=== PATIENT | female | born 1955 | race Two or more races ===

== ENCOUNTER 2017-09-16 18:24 | Emergency (ER) | payer OTHER, MEDICAID ==
[~2017-09-16] VITALS: Ht 152.4 cm; Wt 62.6 kg
[~2017-09-16 18:24] MED LIST: BACL20TA PO; GABA100C9 PO; IBUP800T24 PO; LEVE100020 PO; LISI2.5T47 PO; MECL1TAB42 PO; MEM5T PO; MEMA10TA PO; NITR-48 PO; OLAN20TA13 PO; TRAZ100T2 PO
[2017-09-16 19:13] LABS: Basophils # (auto) 0 uL; Eosinophils # (auto) 0 uL; Eosinophils % (auto) 0.7 % (0.0-7.0); Hemoglobin 11.7 g/dL (12.2-16.2); Monocytes # (auto) 0.4 uL; Nucleated Red Blood Cells % 0.2 %
[2017-09-16 19:15] LABS: Basophils % (auto) 0.7 % (0.0-2.0); Hematocrit 35.1 % (36.0-46.0); Lymphocytes % (auto) 39.7 % (10.0-50.0); Mean Corpuscular Hemoglobin 36.6 pg (28.0-32.0); Mean Corpuscular Hgb Conc. 33.4 g/dL (32.0-36.0); Mean Corpuscular Volume 109.5 fL (80.0-100.0); Monocytes % (auto) 8.4 % (0.0-12.0); Neutrophils # (auto) 2.5 uL; Neutrophils % (auto) 50.5 % (37.0-80.0); Platelet Count (auto) 199 10^3/uL (140-450); Red Blood Cells 3.21 10^6/uL (4.0-5.20); Red Cell Distribution Width 15.1 % (11.8-14.3)
[2017-09-16 19:31] LABS: Potassium 3.6 mmol/L (3.5-5.1)
[2017-09-16 19:36] LABS: Albumin 4.4 g/dL (3.4-5.0); BUN/Creatinine Ratio 13.3; Bilirubin, Total 0.3 mg/dL (0.2-1.0); Calcium 8.7 mg/dL (8.5-10.1)
[2017-09-16 19:39] LABS: Urine Bacteria NONE SEEN /hpf (None Seen); Urine Blood Negative /uL (Negative); Urine Mucus FEW (None Seen); Urine Specific Gravity 1.027 (1.001-1.035); Urine WBC 200 /hpf (0 - 5)
[2017-09-17] MEDS ORDERED: SODIUM CHLORIDE 0.9% 1,000 ML IV ONE (08:34)
[2017-09-17] MEDS ORDERED: cefTRIAXone 1GM/10ml IVPUSH 10 ML IV ONE (08:45)
[2017-09-17 09:56] LABS: Alcohol, Urine < 3.0 mg/dL (0-5); Amphetamine Screen, Urine NEGATIVE (NEGATIVE); Barbiturate Scree,Urine NEGATIVE (NEGATIVE); Benzodiazephine Screen, Urine NEGATIVE (NEGATIVE); Cannabinoid Screen, Urine NEGATIVE (NEGATIVE); Cocaine Screen, Urine NEGATIVE (NEGATIVE); Opiate Scree,Urine NEGATIVE (NEGATIVE); Phencyclidine Screen, Urine NEGATIVE (NEGATIVE)
[2017-09-17 11:37] VITALS: BP 166/75
== END 2017-09-17 12:18 | disposition home or self-care (01) ==
LOC: ER 18:24
DX: R41.82 Altered mental status, unspecified (principal); N39.0 Urinary tract infection, site not specified; F02.80 Dementia in other diseases classified elsewhere, unspecified severity, without behavioral disturbance, psychotic disturbance, mood disturbance, and anxiety; G30.9 Alzheimer's disease, unspecified; N18.3 Chronic kidney disease, stage 3 (moderate); G35 Multiple sclerosis; E03.9 Hypothyroidism, unspecified; D64.9 Anemia, unspecified; R56.9 Unspecified convulsions; I12.9 Hypertensive chronic kidney disease with stage 1 through stage 4 chronic kidney disease, or unspecified chronic kidney disease; M19.90 Unspecified osteoarthritis, unspecified site; K21.9 Gastro-esophageal reflux disease without esophagitis; J44.9 Chronic obstructive pulmonary disease, unspecified; I25.10 Atherosclerotic heart disease of native coronary artery without angina pectoris; F32.9 Major depressive disorder, single episode, unspecified; F17.210 Nicotine dependence, cigarettes, uncomplicated
CPT/HCPCS: 36415; 70450; 71046; 80053; 80307; 81001; 83735; 84443; 85025; 93005; 94761; 96361; 96374; 99285; J7030

== ENCOUNTER 2017-09-30 08:35 | Emergency (ER) | payer OTHER, MEDICAID ==
[~2017-09-30] VITALS: Ht 152.4 cm; Wt 65.8 kg
[2017-09-30] MEDS ORDERED: ALBUTEROL SULF 2.5 MG/0.5ML(0.5%) NEB SOLN NEB ONE (09:30)
[2017-09-30] MEDS ORDERED: methylPREDNISolone SOD SUCC 125 MG/2 ML VL IV ONE (09:30)
[2017-09-30] MEDS ORDERED: IPRATROPIUM BROM 0.5 MG/2.5ML INH SOL NEB ONE (09:30)
[2017-09-30 09:36] LABS: Basophils # (auto) 0 uL; Eosinophils # (auto) 0 uL; Hematocrit 31.2 % (36.0-46.0); Hemoglobin 10.6 g/dL (12.2-16.2); Lymphocytes # (auto) 1.4 uL; Mean Corpuscular Hgb Conc. 34.1 g/dL (32.0-36.0); Monocytes # (auto) 0.3 uL; Neutrophils # (auto) 1.4 uL; Red Blood Cells 2.92 10^6/uL (4.0-5.20)
[2017-09-30 09:39] LABS: Basophils % (auto) 0.5 % (0.0-2.0); Eosinophils % (auto) 0.7 % (0.0-7.0); Lymphocytes % (auto) 45.1 % (10.0-50.0); Mean Corpuscular Hemoglobin 36.3 pg (28.0-32.0); Mean Corpuscular Volume 106.7 fL (80.0-100.0); Neutrophils % (auto) 44.7 % (37.0-80.0); Platelet Count (auto) 145 10^3/uL (140-450); Red Cell Distribution Width 14.1 % (11.8-14.3); White Blood Cell 3.1 10^3/uL (4.4-10.8)
[2017-09-30 09:52] LABS: Alanine Aminotransferase 32 U/L (13-56); Albumin 4.1 g/dL (3.4-5.0); Alkaline Phosphatase 106 U/L (45-117); Anion Gap 6 (5-15); Aspartate Aminotransferase 33 U/L (15-37); BUN/Creatinine Ratio 10.8; Bilirubin, Total 0.3 mg/dL (0.2-1.0); Blood Urea Nitrogen 12 mg/dL (7-18); Calcium 8.4 mg/dL (8.5-10.1); Carbon Dioxide 27 mmol/L (21-32); Chloride 105 mmol/L (98-107); GFR African American 64 mL/min; GFR Non-African American 53 mL/min; Glucose 118 mg/dL (74-106); Potassium 4.2 mmol/L (3.5-5.1); Sodium 138 mmol/L (136-145); Total Protein 7.3 g/dL (6.4-8.2)
[2017-09-30 10:32] LABS: Urine Bacteria NONE SEEN /hpf (None Seen); Urine Blood Negative /uL (Negative); Urine Specific Gravity 1.009 (1.001-1.035); Urine WBC <1 /hpf (0 - 5)
[2017-09-30 11:05] VITALS: BP 134/71
== END 2017-09-30 11:28 | disposition home or self-care (01) ==
LOC: ER 08:35
DX: J40 Bronchitis, not specified as acute or chronic (principal); I25.10 Atherosclerotic heart disease of native coronary artery without angina pectoris; J44.9 Chronic obstructive pulmonary disease, unspecified; K21.9 Gastro-esophageal reflux disease without esophagitis; I12.9 Hypertensive chronic kidney disease with stage 1 through stage 4 chronic kidney disease, or unspecified chronic kidney disease; N18.9 Chronic kidney disease, unspecified; F17.210 Nicotine dependence, cigarettes, uncomplicated; Z90.49 Acquired absence of other specified parts of digestive tract
CPT/HCPCS: 36415; 71045; 80053; 81001; 83880; 84484; 85025; 93005; 94640; 96374; 99285; J2930

== ENCOUNTER 2019-07-27 08:14 | Inpatient (IN) | payer OTHER, MEDICAID ==
[~2019-07-27] VITALS: Ht 152.4 cm; Wt 70.5 kg
[2019-07-27] VITALS (26 sets, daily range): BP systolic 93–143; BP diastolic 33–104
[~2019-07-27 08:14] MED LIST changes: -NITR-48 PO; +NITR100C44 PO
[2019-07-27 09:04] LABS: Basophils # (auto) 0 uL; Eosinophils # (auto) 0 uL; Eosinophils % (auto) 0.5 % (0.0-7.0); Monocytes # (auto) 0.3 uL; Neutrophils # (auto) 2.9 uL
[2019-07-27] MEDS ORDERED: LORazepam 2MG/ML-1ML VIAL ONE (09:04)
[2019-07-27 09:08] LABS: Hemoglobin 12.6 g/dL (12.2-16.2); Lymphocytes % (auto) 22.8 % (10.0-50.0); Mean Corpuscular Hemoglobin 33.2 pg (28.0-32.0); Mean Corpuscular Hgb Conc. 33.2 g/dL (32.0-36.0); Monocytes % (auto) 7.3 % (0.0-12.0); Neutrophils % (auto) 68.4 % (37.0-80.0); Platelet Count (auto) 182 10^3/uL (140-450); Red Cell Distribution Width 14.1 % (11.8-14.3); White Blood Cell 4.2 10^3/uL (4.4-10.8)
[2019-07-27] MEDS ORDERED: CALCIUM GLUC 4.65meq/50ml D5AE 50 ML IV ONE (09:15)
[2019-07-27] MEDS ORDERED: LORazepam 2MG/ML-1ML VIAL IV ONE (09:15)
[2019-07-27 09:19] LABS: Anion Gap 5 (5-15); Blood Urea Nitrogen 35 mg/dL (7-18); Calcium 8.1 mg/dL (8.5-10.1); Carbon Dioxide 23 mmol/L (21-32); Chloride 111 mmol/L (98-107); Glucose 120 mg/dL (74-106); Magnesium 2.1 mg/dL (1.6-2.6); Sodium 139 mmol/L (136-145)
[2019-07-27 09:25] LABS: Alanine Aminotransferase 9 U/L (13-56); Alkaline Phosphatase 90 U/L (45-117); Aspartate Aminotransferase 16 U/L (15-37); BUN/Creatinine Ratio 29.2; Bilirubin, Total 0.6 mg/dL (0.2-1.0); GFR African American 58 mL/min; GFR Non-African American 48 mL/min; Total Protein 5.7 g/dL (6.4-8.2)
[2019-07-27] MEDS ORDERED: GLUCAGON HYDROCHLORIDE (RDNA) 1 MG VIAL ONE (09:35)
[2019-07-27] MEDS ORDERED: ATROPINE SULFATE 1 MG/1 ML VIAL ONE (09:41)
[2019-07-27] MEDS ORDERED: GLUCAGON HYDROCHLORIDE (RDNA) 1 MG VIAL IV ONE (09:45)
[2019-07-27] MEDS ORDERED: ATROPINE SULF 1 MG/10ml SYR IV ONE ×2 (09:45→17:52)
[2019-07-27] MEDS ORDERED: DOPamine 1600MCG/ML D5W 250 ML IV ONE (10:00)
[2019-07-27] MEDS ORDERED: TEMAZEPAM 15 MG CAP PO PRN (10:15)
[2019-07-27] MEDS ORDERED: MORPHINE SULF INJ 2 MG/ML SYRINGE 1ML IV PRN (10:15)
[2019-07-27] MEDS ORDERED: PROMETHAZINE HCL 25 MG/ML 1ML IV PRN (10:15)
[2019-07-27] MEDS ORDERED: NITROGLYCERIN 0.4 MG SL TAB SL PRN (10:15)
[2019-07-27] MEDS ORDERED: ACETAMINOPHEN 500 MG TAB PO PRN (10:15)
[2019-07-27] MEDS ORDERED: traMADol HCL 50 MG TAB PO PRN (10:15)
[2019-07-27] MEDS ORDERED: DEXTROSE (50%) 50ML SYRG IV PRN (10:15)
[2019-07-27] MEDS ORDERED: ENOXAPARIN SOD 40 MG/0.4 ML SYRINGE SC ONE (10:30)
[2019-07-27] MEDS ORDERED: PANTOPRAZOLE 40 MG TAB PO ONE (10:30)
[2019-07-27] MEDS: SODIUM CHLORIDE 0.9% 1,000 ML IV SCH ×2 (10:44→18:33)
--- NOTE | 2019-07-27 10:50 | NUR ---
REPORT RECEIVED Report received from Robin RAMOS.
--- NOTE | 2019-07-27 11:00 | NUR ---
PATIENT RECEIVED Patient received from ER from RACHEL Kelly. Patient in bed awake and alert. Patient A&Ox4, afebrile, sinus rhythm on Dopamine, patient able to assist in transfer and follow commands.
[2019-07-27] MEDS: ACCU-CHEK COMFORT CURVE STRIP VI SCH ×3 (11:30→22:00)
--- NOTE | 2019-07-27 12:00 | NUR ---
FAMILY CALLED Patients son, Carlin, called to get update on patients status. Son can be reached at [phone].
--- NOTE | 2019-07-27 14:32 | NUR ---
FAMILY CALLED Son, Carlin, called to check on patients status. Updated.
--- NOTE | 2019-07-27 15:55 | NUR ---
VIVIAN AVILA Paged Dr. Gibbs to update on patients heart rate.
--- NOTE | 2019-07-27 16:00 | NUR ---
SPOKE TO MD Dr. Gibbs returned call, updated him on patients status. MD stated to update him if patient develops a second or third degree block.
[2019-07-27] MEDS ORDERED: ALBU1SYP PO (16:48)
[2019-07-27] MEDS ORDERED: LEVO100T8 PO (16:48)
[2019-07-27] MEDS ORDERED: GLAT1INJ SC (16:48)
[2019-07-27] MEDS ORDERED: PARO25TA21 PO (16:48)
[2019-07-27] MEDS ORDERED: KETO2CRE4 EX (16:48)
[2019-07-27] MEDS ORDERED: FLUT250M2 IN (16:48)
[2019-07-27] MEDS ORDERED: DONE10TA40 PO (16:48)
[2019-07-27] MEDS ORDERED: SUMA25TA2 PO (16:48)
[2019-07-27] MEDS ORDERED: DOPamine 1600mCg/ml 400MG/250ml NSorD5 KIT/BAG IV ONE (17:52)
--- NOTE | 2019-07-27 18:55 | NUR ---
FAMILY BEDSIDE Son, Carlin, bedside.
[2019-07-27] MEDS ORDERED: ATORVASTATIN 20 MG TAB PO SCH (22:00)
[2019-07-28] VITALS (61 sets, daily range): BP systolic 94–152; BP diastolic 39–70
[2019-07-28] MEDS: SODIUM CHLORIDE 0.9% 1,000 ML IV SCH ×4 (02:05→23:10)
--- NOTE | 2019-07-28 06:25 | NUR ---
IV L HAND INFILTRATED WITH N/S . IV D/CD AND HAND ELEVATED
[2019-07-28] MEDS: ACCU-CHEK COMFORT CURVE STRIP VI SCH ×4 (06:32→22:00)
[2019-07-28 06:57] LABS: Cholesterol 64 mg/dL (< 200); HDL Cholesterol 46 mg/dL (40-59); LDL Cholesterol 30 mg/dL (< 100); Triglycerides 3 mg/dL (< 150)
--- NOTE | 2019-07-28 07:20 | NUR ---
OPENING Received report from Liban RAMOS. Care initiated and initial assessment complete.
[2019-07-28] MEDS ORDERED: DOPamine 1600MCG/ML D5W 250 ML IV ONE (07:48)
--- NOTE | 2019-07-28 09:20 | NUR ---
BEDSIDE Dr. Gibbs bedside. New orders received. spoke to patient about Leaky Valve dx.
[2019-07-28] MEDS ORDERED: MECLIZINE HCL 25 MG TAB PO PRN (09:30)
[2019-07-28] MEDS: amLODIPine BESYLATE 5 MG TAB PO SCH (10:00)
[2019-07-28] MEDS: PANTOPRAZOLE 40 MG TAB PO SCH (10:05)
[2019-07-28] MEDS: ENOXAPARIN SOD 40 MG/0.4 ML SYRINGE SC SCH (10:06)
[2019-07-28] MEDS ORDERED: LEVOTHYROXINE SODIUM 100 MCG/5 ML INJ IV ONE (10:30)
--- NOTE | 2019-07-28 11:30 | NUR ---
DOPAMINE OFF MDs ordered Dopamine be titrated off and DC'd. Dopamine off at this time.
--- NOTE | 2019-07-28 12:00 | NUR ---
BEDSIDE Dr. Hernandez bedside. New orders received, downgrade patient to tele. Waiting bed assignment.
--- NOTE | 2019-07-28 14:37 | NUR ---
NAUSEA Patient complaining of nausea, medication given as ordered.
--- NOTE | 2019-07-28 19:00 | NUR ---
OPEN RECEIVED REPORT AND ASSUMED CARE OF FEMALE PT. PT IS SITTING UP IN BED ON NC AT 2 L O2SAT IS 98%. PT IS CONNECTED TO ICU MONITORS AND VS ARE STABLE. PT HAS A R EJ AND THE LINE FLUSHED W/NS W/O RESISTANCE, APPEARS ASYMPTOMATIC. PT RUNNING NS AT 125ML/HR. PT HAS STERISTRIPS PLACED TO R UPPER CHEST. PT STATES SHE HAD "A PORTACATH REMOVED ON THE ." PT HAS BEDSIDE COMMODE. 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 PILLOWS ARE IN PLACE UNDER [place] FRO COMFORT AND SAFETY.PT INSTRUCTED TO USE CALL LIGHT TO GET OUT OF BED OR IF SHE WANTS/NEEDS ANYTHING AT ALL. BED IS IN LOWEST POSITION,WHEELS ARE LOCKED 2 SIDERAILS UP AND PT IS IN FULL VIEW OF RN STATION. WILL CONTINUE TO CARE FOR AND MONITOR.
--- NOTE | 2019-07-28 19:30 | NUR ---
NO ARMBAND PT WAS NOT WEARING AN ARMBAND AT THIS TIME. STATED SHE HASN'T WORE ONE ALL DAY. A NEW ARMBAND WAS PROVIDED TO PT. INFORMATION WAS VERIFIED AND ARMBAND PLACED ON PT.
[2019-07-28 19:45] LABS: Urine Bacteria FEW /hpf (None Seen); Urine Blood Negative /uL (Negative); Urine Specific Gravity 1.008 (1.001-1.035); Urine WBC 5 /hpf (0 - 5)
[2019-07-28 20:05] LABS: Alcohol, Urine < 3.0 mg/dL (0-5); Amphetamine Screen, Urine NEGATIVE (NEGATIVE); Barbiturate Scree,Urine NEGATIVE (NEGATIVE); Benzodiazephine Screen, Urine NEGATIVE (NEGATIVE); Cannabinoid Screen, Urine NEGATIVE (NEGATIVE); Cocaine Screen, Urine NEGATIVE (NEGATIVE); Opiate Scree,Urine NEGATIVE (NEGATIVE); Phencyclidine Screen, Urine NEGATIVE (NEGATIVE)
--- NOTE | 2019-07-28 21:10 | NUR ---
SLEEPING PILL PT COMPLAINED OF NOT BEING ABLE TO SLEEP. PT REQUESTED "SLEEPING PILL." PT WAS GIVEN PRESCRIBED MEDICATION FOR INSOMNIA.
--- NOTE | 2019-07-28 22:00 | NUR ---
BEDSIDE COMMODE PT HELPED TO BEDSIDE COMMODE. PT HELPED BACK INTO BED. PT TOLERATED ACTIVITY. VS STABLE.
--- NOTE | 2019-07-28 23:00 | NUR ---
REFUSED SCD PT REFUSED SCDS. PT STATED SHE WILL PUT THEM BACK ON IN THE MORNING. PT EDUCATED ON THE IMPORTANCE OF SCDS AND POSSIBLE CONSEQUENCES OF NOT AMBULATING. PT VERBALIZED UNDERSTANDING AND SAID "TOMORROW."
[2019-07-29] VITALS (50 sets, daily range): BP systolic 89–142; BP diastolic 30–88
[2019-07-29 04:07] LABS: Basophils # (auto) 0.1 uL; Basophils % (auto) 1.2 % (0.0-2.0); Eosinophils # (auto) 0.1 uL; Eosinophils % (auto) 1.5 % (0.0-7.0); Hemoglobin 10.3 g/dL (12.2-16.2); Lymphocytes # (auto) 2.3 uL; Lymphocytes % (auto) 45.2 % (10.0-50.0); Mean Corpuscular Hgb Conc. 34.5 g/dL (32.0-36.0); Mean Corpuscular Volume 98.6 fL (80.0-100.0); Monocytes # (auto) 0.5 uL; Monocytes % (auto) 9.3 % (0.0-12.0); Neutrophils # (auto) 2.1 uL; Neutrophils % (auto) 42.8 % (37.0-80.0); Nucleated Red Blood Cells % 0.2 %; Platelet Count (auto) 131 10^3/uL (140-450); Red Blood Cells 3.04 10^6/uL (4.0-5.20); Red Cell Distribution Width 14.3 % (11.8-14.3)
[2019-07-29 05:52] LABS: Potassium 3.9 mmol/L (3.5-5.1)
[2019-07-29 06:01] LABS: Albumin 2.5 g/dL (3.4-5.0); BUN/Creatinine Ratio 19.4; Bilirubin, Total 0.5 mg/dL (0.2-1.0); Calcium 7.6 mg/dL (8.5-10.1); Total Protein 5.1 g/dL (6.4-8.2)
--- NOTE | 2019-07-29 07:40 | NUR ---
OPENING Report received from Jackie RAMOS. Care initiated and initial assessment completed. Patient is sinus rhythm and on low dose of dopamine, will titrate appropriately.
--- NOTE | 2019-07-29 07:50 | NUR ---
DOPAMINE OFF Dopamine off, patient tolerating at this time.
[2019-07-29] MEDS: LEVOTHYROXINE SODIUM 100 MCG/5 ML INJ IV SCH (08:10)
[2019-07-29] MEDS: ACCU-CHEK COMFORT CURVE STRIP VI SCH ×4 (08:10→22:00)
--- NOTE | 2019-07-29 08:10 | NUR ---
BLOOD SUGAR COMMENT Patients blood glucose low, orange juice given until breakfast tray arrives.
[2019-07-29] MEDS: amLODIPine BESYLATE 5 MG TAB PO SCH (10:00)
[2019-07-29] MEDS: ENOXAPARIN SOD 40 MG/0.4 ML SYRINGE SC SCH (10:00)
[2019-07-29] MEDS: PANTOPRAZOLE 40 MG TAB PO SCH (10:00)
[2019-07-29] MEDS: SODIUM CHLORIDE 0.9% 1,000 ML IV SCH ×2 (10:05→18:05)
--- NOTE | 2019-07-29 11:40 | NUR ---
MIDLINE NURSE BEDSIDE
--- NOTE | 2019-07-29 11:55 | NUR ---
BEDSIDE Dr. Hernandez bedside. Downgrade to tele.
--- NOTE | 2019-07-29 12:13 | NUR ---
Midline Placement: Patient educated on need for midline placement. All risks and benefits explained and all questions and concerns addresses prior to procedure. 4FR 20CM cm midline inserted via RIGHT BASILIC vein using Ultrasound. Sterile technique utilized. Blood return obtained from SINGLE lumen and flushed easily with NS using proper technique. Midline secured with saline lock; biodisc and occlusive dressing applied. Primary RN notified. Midline lot #[id number]. INTERNAL LENGTH 20CM EXTERNAL LENGTH 0CM
--- NOTE | 2019-07-29 12:15 | NUR ---
MIDLINE IN PLACE
--- NOTE | 2019-07-29 12:15 | NUR ---
IV DC'd IV DC'd with sterile technique, catheter fully intact. Pressure dressing applied to site. Patient tolerated procedure well.
--- NOTE | 2019-07-29 12:43 | NUR ---
BEDSIDE Dr. Gibbs bedside, downgrade patient to tele. No further orders.
--- NOTE | 2019-07-29 17:30 | NUR ---
OUT OF BED Patient in the chair watching tv. Brushed teeth and hair.
--- NOTE | 2019-07-29 17:53 | NUR ---
COMPLETE LINEN CHANGE
--- NOTE | 2019-07-29 19:10 | NUR ---
REPORT GIVEN AND CARE ENDORSED TO RACEHL RODRIGUEZ Addendum: 07/29/19 at 2159 by [place] [id number] REPORT GIVEN AND CARE ENDORSED TO RACHEL RODRIGUEZ
--- NOTE | 2019-07-29 19:15 | NUR ---
OPEN RECEIVED REPORT AND ASSUMED CARE OF FEMALE PT. PT IS SITTING UP IN BED ON RA, P2SAT 96%.. PT IS CONNECTED TO ICU MONITORS AND VS ARE STABLE WITH A TEMP OF 98.5*. PT HAS R MIDLINE PLACED ON 07/29, FLUSHED W/NS W/O RESISTANCE, APPEARS ASYMPTOMATIC. PT RUNNING NS AT 125ML/HR. PTS STERISTRIPS NON INTACT WILL DISGARD AND CLEAN AREA. PT HAS BEDSIDE COMMODE. 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 PILLOWS ARE IN PLACE UNDER [place] FRO COMFORT AND SAFETY.PT INSTRUCTED TO USE CALL LIGHT TO GET OUT OF BED OR IF SHE WANTS/NEEDS ANYTHING AT ALL. BED IS IN LOWEST POSITION,WHEELS ARE LOCKED 2 SIDERAILS UP AND PT IS IN FULL VIEW OF RN STATION. WILL CONTINUE TO CARE FOR AND MONITOR.
--- NOTE | 2019-07-29 19:30 | NUR ---
PT HAS NO SCDS PT STATES "I DONT WANT TO WEAR THEM, NO ONE HAS ASKED ME TO PUT THEM ON ALL DAY, WHY ARE YOU?" PT WAS EDUCATED ON THE COMPLICATIONS THAT COULD POTENTIALLY HAPPEN WHEN NOT AMBULATING. PT STATED "I UNDERSTAND BUT I DONT WANT TO WEAR THOSE." (PT WAS REFERRING TO THE SCDS.)
--- NOTE | 2019-07-29 20:00 | NUR ---
STERISTRIPS REMOVED STERISTRIPS NON INTACT AND DIRTY, AREA CLEANSED AND TEGADERM APPLIED. PT STATES NO PAIN AT THIS TIME.
--- NOTE | 2019-07-29 20:47 | NUR ---
REPORT GIVEN TO RACHEL ANSARI REPORT GIVEN TO RACHEL ANSARI. NO QUESTIONS AT THIS TIME PER COTY. PT WILL BE TRANSFER TO TELE ROOM 221A.
--- NOTE | 2019-07-29 21:00 | NUR ---
Telemetry transfer from [facility] admitted to Telemetry unit after SBAR received. Patient oriented to Ninfa Casillas,RN primary RN, unit, room, bed, and unit policies regarding patient care and visiting hours. Patient now on continuous telemetry monitoring, tele box #[id number] and telemetry reading on arrival to unit is SB @ 58. Patient placed on 2L oxygen via nasal cannula PRN at night. AAOx4, no acute S/S of distress, SOB or pain. Seizure precautions in place. Patient reports no history of seizures. Weighed by bed scale and encouraged to call if they need something. All questions and concerns addressed, patient verbalized understanding. Bed in lowest locked position, side rails up x2, call light within reach. Will continue to monitor every hour and as needed.
--- NOTE | 2019-07-29 21:05 | NUR ---
PT OFF FLOOR PACKED ALL OF PTS BELONGINGS IN FRONT OF PT. CONNECTED PT TO PORTABLE TELE MONITOR. TRANSPORTED PT AND ALL BELONGINGS VIA WHEELCHAIR TO ROOM 221A. ASSISTED PT TO NEW BED. PT AMBULATED WITHOUT DISTRESS. RN ARRIVED TO ROOM AND INTRODUCED HERSELF TO PT. CARE ENDORSED TO RACHEL ANSARI.
[2019-07-30 05:00] VITALS: BP 133/59
[2019-07-30] MEDS: SODIUM CHLORIDE 0.9% 1,000 ML IV SCH ×2 (05:13→10:05)
[2019-07-30] MEDS: ACCU-CHEK COMFORT CURVE STRIP VI SCH ×2 (06:43→11:33)
[2019-07-30] MEDS: LEVOTHYROXINE SODIUM 100 MCG/5 ML INJ IV SCH (06:43)
--- NOTE | 2019-07-30 07:24 | NUR ---
OPENING SHIFT NOTE Assumed care of patient form section 8 property manager nurse. patient is alert and orientedx4, patient complains of headache "4/10" and requested pain medicine. Acetaminophen was administered. No other signs of distress noted. Patient was updated on the plan of care and verbalized understanding, all patient questions were answered. Bed is in the lowest position, side rails upx2 and call light is in reach. patient was encouraged to call for assistance when needed, will continue to monitor.
[2019-07-30 09:00] VITALS: BP 139/69
--- NOTE | 2019-07-30 09:40 | NUR ---
Dr. Hernandez at bedside. New orders received and carried out.
[2019-07-30] MEDS: amLODIPine BESYLATE 5 MG TAB PO SCH (09:43)
[2019-07-30] MEDS: ENOXAPARIN SOD 40 MG/0.4 ML SYRINGE SC SCH (09:43)
[2019-07-30] MEDS: PANTOPRAZOLE 40 MG TAB PO SCH (09:43)
[2019-07-30 10:01] LABS: Free T4 (Free Thyroxine) 0.73 ng/dL (0.89-1.76)
[2019-07-30 11:43] VITALS: BP 139/69
[2019-07-30 13:00] VITALS: BP 130/61
--- NOTE | 2019-07-30 13:09 | NUR ---
DISCHARGE Discharge instructions given as ordered. Encourage to follow up with PMD as instructed. All questions and concerns addressed. Patient verbalized understanding. Medication reconciliation form completed and copy given to patient. Midline removed with catheter intact, pressure dressing applied. Telemetry unit returned to ICU. Patient taken to vehicle via wheelchair with all personal belongings, accompanied by staff and family member. No distress noted at time of departure.
== END 2019-07-30 13:09 | disposition home or self-care (01) | DRG 310 ==
LOC: ER 08:14 → OVERFLOW 08:15 → ICU WEST 11:23 → TELE-CENTR 07-29 21:09
PROVIDERS: ADMIT Internal Medicine; ATTEND Internal Medicine
DX: R00.1 Bradycardia, unspecified (principal); I12.9 Hypertensive chronic kidney disease with stage 1 through stage 4 chronic kidney disease, or unspecified chronic kidney disease; N18.3 Chronic kidney disease, stage 3 (moderate); E03.9 Hypothyroidism, unspecified; E78.5 Hyperlipidemia, unspecified; I35.1 Nonrheumatic aortic (valve) insufficiency; K21.9 Gastro-esophageal reflux disease without esophagitis; T44.7X5A Adverse effect of beta-adrenoreceptor antagonists, initial encounter; M16.10 Unilateral primary osteoarthritis, unspecified hip; F32.9 Major depressive disorder, single episode, unspecified; G43.909 Migraine, unspecified, not intractable, without status migrainosus; Z90.49 Acquired absence of other specified parts of digestive tract; Z79.899 Other long term (current) drug therapy; Z87.891 Personal history of nicotine dependence
CPT/HCPCS: 36415; 70450; 71045; 73502; 73562; 80053; 80061; 80307; 81001; 82550; 82607; 82962; 83036; 83735; 84439; 84443; 84484; 85025; 87081; 93005; 93306; 93886; 96365; 96375; 99291; G0378; J0461; J0610; J3490

== ENCOUNTER 2020-03-16 09:42 | Emergency (ER) | payer OTHER, MEDICAID ==
[~2020-03-16] VITALS: Ht 152.4 cm; Wt 65.8 kg
[~2020-03-16 09:42] MED LIST changes: +ALBU1SYP PO; +DONE10TA40 PO; +FLUT250M2 IN; -GABA100C9 PO; +GLAT1INJ SC; +KETO2CRE4 EX; -LEVE100020 PO; +LEVO100T8 PO; +PARO25TA21 PO; +SUMA25TA2 PO; -TRAZ100T2 PO; +TRAZ100T3 PO
[2020-03-16 10:10] VITALS: BP 132/70
[2020-03-16] MEDS ORDERED: ACETAMINOPHEN 325 MG TAB PO ONE (10:30)
== END 2020-03-16 11:15 | disposition home or self-care (01) ==
LOC: ER 09:42
DX: M54.16 Radiculopathy, lumbar region (principal); I12.9 Hypertensive chronic kidney disease with stage 1 through stage 4 chronic kidney disease, or unspecified chronic kidney disease; N18.9 Chronic kidney disease, unspecified; J44.9 Chronic obstructive pulmonary disease, unspecified; R51 Headache; K21.9 Gastro-esophageal reflux disease without esophagitis; Z90.49 Acquired absence of other specified parts of digestive tract
CPT/HCPCS: 72100

== ENCOUNTER 2021-12-19 22:14 | Inpatient (IN) | payer OTHER, MEDICAID ==
[~2021-12-19] VITALS: Ht 134.6 cm; Wt 62.9 kg
[~2021-12-19 22:14] MED LIST changes: -ALBU1SYP PO; +ALBU2SYP10 PO; -DONE10TA40 PO; +DONE1TAB88 PO; -IBUP800T24 PO; +IBUP800T27 PO; +NITR-87 PO; -NITR100C44 PO; +OLAN20TA PO; -OLAN20TA13 PO
[2021-12-19 23:13] LABS: Basophils # (auto) 0 10 ^3/uL (0-0.2); Basophils % (auto) 0.2 % (0.0-2.0); Eosinophils # (auto) 0 10 ^3/uL (0-0.8); Eosinophils % (auto) 0.1 % (0.0-7.0); Hematocrit 38.1 % (36.0-46.0); Hemoglobin 12.8 g/dL (12.2-16.2); Lymphocytes # (auto) 0.7 10 ^3/uL (0.4-5.4); Lymphocytes % (auto) 6.1 % (10.0-50.0); Mean Corpuscular Hgb Conc. 33.7 g/dL (32.0-36.0); Mean Corpuscular Volume 97.9 fL (80.0-100.0); Monocytes # (auto) 0.8 10 ^3/uL (0-1.3); Monocytes % (auto) 6.9 % (0.0-12.0); Neutrophils % (auto) 86.7 % (37.0-80.0); Nucleated Red Blood Cells % 0.1 %; Red Blood Cells 3.89 10^6/uL (4.0-5.20); Red Cell Distribution Width 13.3 % (11.8-14.3); White Blood Cell 11.5 10^3/uL (4.4-10.8)
[2021-12-19 23:29] LABS: Albumin 3.2 g/dL (3.4-5.0); Magnesium 1.9 mg/dL (1.6-2.6)
[2021-12-19 23:35] LABS: Bilirubin, Total 0.4 mg/dL (0.2-1.0); Calcium 9.2 mg/dL (8.5-10.1); Total Protein 7.6 g/dL (6.4-8.2)
[2021-12-20] VITALS (8 sets, daily range): BP systolic 142–173; BP diastolic 48–80
[2021-12-20] MEDS ORDERED: ALBUTEROL SULF 2 MG/5ML ORAL SYRUP PO PRN (03:00)
[2021-12-20] MEDS ORDERED: ONDANSETRON HCL 4 MG/2 ML VIAL IV PRN (03:15)
[2021-12-20] MEDS ORDERED: ALBUTEROL SULF 2.5 MG/0.5ML(0.5%) NEB SOLN NEB ONE (03:15)
[2021-12-20] MEDS ORDERED: methylPREDNISolone SOD SUCC 125 MG/2 ML VL IV ONE (03:15)
[2021-12-20] MEDS ORDERED: ALBUTEROL SULF 2.5 MG/0.5ML(0.5%) NEB SOLN ONE (03:20)
[2021-12-20] MEDS ORDERED: ACETAMINOPHEN 325 MG TAB PO ONE (05:30)
[2021-12-20] MEDS ORDERED: CYAN100042 PO (05:42)
[2021-12-20] MEDS ORDERED: DICL1GEL TOP (05:42)
[2021-12-20] MEDS ORDERED: CHOL1CAP21 PO (05:42)
[2021-12-20] MEDS ORDERED: NORT25CA PO (05:42)
[2021-12-20] MEDS ORDERED: LORA10TA12 PO (05:42)
[2021-12-20] MEDS ORDERED: PARO1TAB33 PO (05:42)
[2021-12-20] MEDS ORDERED: SUMA100T15 PO (05:42)
[2021-12-20] MEDS ORDERED: HYDR1CAP27 PO (05:42)
[2021-12-20] MEDS ORDERED: ZOLP10TA6 PO (05:42)
[2021-12-20] MEDS ORDERED: RISP1TAB63 PO (05:42)
[2021-12-20] MEDS ORDERED: HYD1TP TOP (05:42)
[2021-12-20] MEDS ORDERED: TRIA0.1P17 TOP (05:42)
[2021-12-20] MEDS ORDERED: DALF10TA3 PO (05:42)
[2021-12-20] MEDS ORDERED: LID35TP TOP (05:42)
[2021-12-20] MEDS ORDERED: GAB100C PO (05:42)
[2021-12-20] MEDS ORDERED: METO5TAB2 PO (05:42)
[2021-12-20] MEDS ORDERED: TIZA2TAB4 PO (05:42)
[2021-12-20] MEDS ORDERED: SULI200T5 PO (05:42)
[2021-12-20] MEDS ORDERED: FLUO0.059 TOP (05:42)
[2021-12-20] MEDS ORDERED: BACLOFEN 10 MG TAB PO SCH (06:00)
[2021-12-20] MEDS: SODIUM CHLOR 0.9% PF (SALINE LOCK) 10ML VIAL/SYR IV SCH ×2 (06:03→14:00)
[2021-12-20] MEDS ORDERED: LEVOTHYROXINE SODIUM 100 MCG TAB PO SCH (07:00)
[2021-12-20] MEDS ORDERED: LISINOPRIL 5 MG TAB PO SCH (10:00)
[2021-12-20] MEDS ORDERED: SUMAtriptan SUCCINATE 25 MG TAB PO SCH (10:00)
[2021-12-20] MEDS ORDERED: DONEPEZIL HYDROCHLORIDE 5 MG TAB PO SCH (10:00)
[2021-12-20] MEDS ORDERED: MEMANTINE HCL 5 MG TAB PO SCH (10:00)
[2021-12-20] MEDS ORDERED: ALBUTEROL SULF 2.5 MG/0.5ML(0.5%) NEB SOLN NEB PRN (12:15)
[2021-12-20] MEDS ORDERED: AZITTAB PO (12:52)
[2021-12-20 13:37] LABS: Urine Bacteria NONE SEEN /hpf (None Seen); Urine Blood Negative /uL (Negative); Urine Specific Gravity 1.014 (1.001-1.035); Urine WBC 1 /hpf (0 - 5)
[2021-12-20] MEDS ORDERED: methylPREDNISolone SOD SUCC 125 MG/2 ML VL IV SCH (14:00)
[2021-12-20] MEDS ORDERED: GABAPENTIN 300 MG CAP PO SCH (14:00)
[2021-12-20] MEDS ORDERED: ALBUTEROL SULF 2.5 MG/0.5ML(0.5%) NEB SOLN NEB SCH (18:00)
[2021-12-20] MEDS ORDERED: OLANZapine 5 MG TAB PO SCH (22:00)
[2021-12-21] MEDS ORDERED: cefTRIAXone 1GM/50ML D5W 50 ML IV SCH (09:00)
[2021-12-21] MEDS ORDERED: AZITHROMYCIN 500MG/ 250ML 250 ML IV SCH (10:00)
== END 2021-12-20 17:58 | disposition home or self-care (01) | DRG 190 ==
LOC: EDUNIT# 22:14 → ER 22:14 → EDBD 22:14 → EAST 12-20 03:04
PROVIDERS: ADMIT Internal Medicine; ATTEND Internal Medicine
DX: J44.1 Chronic obstructive pulmonary disease with (acute) exacerbation (principal); J18.9 Pneumonia, unspecified organism; J44.0 Chronic obstructive pulmonary disease with (acute) lower respiratory infection; I25.10 Atherosclerotic heart disease of native coronary artery without angina pectoris; E11.22 Type 2 diabetes mellitus with diabetic chronic kidney disease; F32.A Depression, unspecified; K21.9 Gastro-esophageal reflux disease without esophagitis; Z20.822 Contact with and (suspected) exposure to COVID-19; M19.90 Unspecified osteoarthritis, unspecified site; R00.0 Tachycardia, unspecified; I12.9 Hypertensive chronic kidney disease with stage 1 through stage 4 chronic kidney disease, or unspecified chronic kidney disease; N18.9 Chronic kidney disease, unspecified; R06.82 Tachypnea, not elsewhere classified; Z80.9 Family history of malignant neoplasm, unspecified; Z81.8 Family history of other mental and behavioral disorders; Z82.49 Family history of ischemic heart disease and other diseases of the circulatory system; Z83.3 Family history of diabetes mellitus; Z90.49 Acquired absence of other specified parts of digestive tract
CPT/HCPCS: 36415; 71045; 72131; 80053; 81001; 83605; 83735; 83880; 84484; 85025; 87040; 87086; 93005; 94640; 96374; G0378

== ENCOUNTER 2021-12-21 06:55 | Emergency (ER) | payer OTHER, MEDICAID ==
[~2021-12-21] VITALS: Ht 165.1 cm; Wt 68.0 kg
[~2021-12-21 06:55] MED LIST changes: +AZITTAB PO; -BACL20TA PO; +CHOL1CAP21 PO; +CYAN100042 PO; +DALF10TA3 PO; +DICL1GEL TOP; +FLUO0.059 TOP; +GAB100C PO; +HYD1TP TOP; +HYDR1CAP27 PO; -IBUP800T27 PO; +LID35TP TOP; -LISI2.5T47 PO; +LORA10TA12 PO; +METO5TAB2 PO; +NORT25CA PO; -OLAN20TA PO; +PARO1TAB33 PO; -PARO25TA21 PO; +RISP1TAB63 PO; +SULI200T5 PO; +SUMA100T15 PO; -SUMA25TA2 PO; +TIZA2TAB4 PO; -TRAZ100T3 PO; +TRIA0.1P17 TOP; +ZOLP10TA6 PO
[2021-12-21 07:48] VITALS: BP 157/77
[2021-12-21] MEDS ORDERED: TETRACAINE HCL 0.5% OPTH(EYE) SOLN 4ML EACHEYE ONE (09:45)
== END 2021-12-21 10:58 | disposition home or self-care (01) ==
LOC: EDBD 06:55 → ER 06:55
DX: H57.13 Ocular pain, bilateral (principal); H53.8 Other visual disturbances; J44.9 Chronic obstructive pulmonary disease, unspecified; I12.9 Hypertensive chronic kidney disease with stage 1 through stage 4 chronic kidney disease, or unspecified chronic kidney disease; N18.9 Chronic kidney disease, unspecified; I25.10 Atherosclerotic heart disease of native coronary artery without angina pectoris; E03.9 Hypothyroidism, unspecified; Z86.2 Personal history of diseases of the blood and blood-forming organs and certain disorders involving the immune mechanism; Z90.49 Acquired absence of other specified parts of digestive tract; Z79.899 Other long term (current) drug therapy; Z79.2 Long term (current) use of antibiotics
CPT/HCPCS: 70450; 70480

== ENCOUNTER 2021-12-22 18:09 | Inpatient (IN) | payer OTHER, MEDICAID ==
[~2021-12-22] VITALS: Ht 152.4 cm; Wt 64.4 kg
[2021-12-22] MEDS ORDERED: DexAMETHasone SOD PHOS 10MG/1ML VIAL INJ IV ONE (18:30)
[2021-12-22] MEDS ORDERED: AZITHROMYCIN 500MG/ 250ML 250 ML IV ONE (18:30)
[2021-12-22] MEDS ORDERED: IPRATROPIUM BROM 0.5 MG/2.5ML INH SOL ONE (18:53)
[2021-12-22] MEDS ORDERED: ALBUTEROL SULF 2.5 MG/0.5ML(0.5%) NEB SOLN ONE (18:53)
[2021-12-22 18:59] LABS: Basophils # (auto) 0.1 10 ^3/uL (0-0.2); Basophils % (auto) 0.4 % (0.0-2.0); Eosinophils # (auto) 0 10 ^3/uL (0-0.8); Eosinophils % (auto) 0.1 % (0.0-7.0); Hematocrit 33.9 % (36.0-46.0); Hemoglobin 11.5 g/dL (12.2-16.2); Lymphocytes # (auto) 0.8 10 ^3/uL (0.4-5.4); Lymphocytes % (auto) 5.6 % (10.0-50.0); Mean Corpuscular Hemoglobin 33.2 pg (28.0-32.0); Mean Corpuscular Hgb Conc. 33.9 g/dL (32.0-36.0); Mean Corpuscular Volume 97.7 fL (80.0-100.0); Monocytes % (auto) 6.5 % (0.0-12.0); Neutrophils # (auto) 12.9 10 ^3/uL (1.6-8.6); Neutrophils % (auto) 87.4 % (37.0-80.0); Nucleated Red Blood Cells % 0.1 %; Red Blood Cells 3.46 10^6/uL (4.0-5.20); White Blood Cell 14.8 10^3/uL (4.4-10.8)
[2021-12-22] MEDS ORDERED: ALBUTEROL SULF 2.5 MG/0.5ML(0.5%) NEB SOLN NEB ONE (19:00)
[2021-12-22] MEDS ORDERED: IPRATROPIUM BROM 0.5 MG/2.5ML INH SOL NEB ONE (19:00)
[2021-12-22 19:17] LABS: Albumin 2.9 g/dL (3.4-5.0); BUN/Creatinine Ratio 11.7; Calcium 8.4 mg/dL (8.5-10.1); Potassium 3.9 mmol/L (3.5-5.1)
[2021-12-22 19:20] LABS: Bilirubin, Total 0.3 mg/dL (0.2-1.0); Total Protein 6.9 g/dL (6.4-8.2)
[2021-12-22] MEDS ORDERED: ACETAMINOPHEN 325 MG TAB PO PRN (21:15)
[2021-12-22] MEDS ORDERED: MORPHINE SULFATE INJECTION 2 MG/ML SYRG IV PRN (21:15)
[2021-12-22] MEDS ORDERED: ONDANSETRON HCL 4 MG/2 ML VIAL IV PRN (21:15)
[2021-12-22] MEDS ORDERED: NITROGLYCERIN 0.4 MG SL TAB SL PRN (21:15)
[2021-12-22] MEDS ORDERED: methylPREDNISolone SOD SUCC 125 MG/2 ML VL IV SCH (22:00)
[2021-12-22] MEDS ORDERED: ASCORBIC ACID 500 MG TAB PO SCH (22:00)
[2021-12-22] MEDS: MEMANTINE HCL 5 MG TAB PO SCH (22:27)
[2021-12-22] MEDS: DONEPEZIL HYDROCHLORIDE 5 MG TAB PO SCH (22:27)
[2021-12-22] MEDS: GABAPENTIN 100 MG CAP PO SCH (22:28)
[2021-12-22 23:19] VITALS: BP 132/64
[2021-12-22 23:56] VITALS: BP 132/64
[2021-12-23] VITALS (7 sets, daily range): BP systolic 96–146; BP diastolic 51–75
[2021-12-23] MEDS: ALBUTEROL SULF 2.5 MG/0.5ML(0.5%) NEB SOLN NEB PRN ×3 (06:02→18:39)
[2021-12-23] MEDS: IPRATROPIUM BROM 0.5 MG/2.5ML INH SOL NEB SCH ×3 (06:02→18:40)
[2021-12-23] MEDS: GABAPENTIN 100 MG CAP PO SCH ×3 (06:05→22:35)
[2021-12-23] MEDS: LEVOTHYROXINE SODIUM 100 MCG TAB PO SCH (06:35)
[2021-12-23 06:53] LABS: Potassium 5.2 mmol/L (3.5-5.1)
[2021-12-23 07:03] LABS: Albumin 2.8 g/dL (3.4-5.0); BUN/Creatinine Ratio 9.4; Calcium 8.7 mg/dL (8.5-10.1)
[2021-12-23 07:09] LABS: Bilirubin, Total 0.2 mg/dL (0.2-1.0); Total Protein 6.7 g/dL (6.4-8.2)
[2021-12-23 07:13] LABS: Basophils # (auto) 0 10 ^3/uL (0-0.2); Basophils % (auto) 0.2 % (0.0-2.0); Eosinophils # (auto) 0 10 ^3/uL (0-0.8); Hematocrit 33.5 % (36.0-46.0); Hemoglobin 11.3 g/dL (12.2-16.2); Lymphocytes # (auto) 0.5 10 ^3/uL (0.4-5.4); Lymphocytes % (auto) 3.7 % (10.0-50.0); Mean Corpuscular Hemoglobin 33.2 pg (28.0-32.0); Mean Corpuscular Hgb Conc. 33.9 g/dL (32.0-36.0); Mean Corpuscular Volume 98.2 fL (80.0-100.0); Monocytes # (auto) 0.1 10 ^3/uL (0-1.3); Monocytes % (auto) 1.1 % (0.0-12.0); Neutrophils # (auto) 13.3 10 ^3/uL (1.6-8.6); Red Blood Cells 3.41 10^6/uL (4.0-5.20); Red Cell Distribution Width 12.7 % (11.8-14.3)
[2021-12-23] MEDS ORDERED: ZINC SULFATE 220mg CAP or TAB PO SCH (10:00)
[2021-12-23] MEDS: AZITHROMYCIN 500MG/ 250ML 250 ML IV SCH ×2 (10:00→18:27)
[2021-12-23] MEDS: MULTIPLE VITAMIN TAB PO SCH (10:26)
[2021-12-23] MEDS: MEMANTINE HCL 5 MG TAB PO SCH ×2 (10:26→22:34)
[2021-12-23] MEDS: risperiDONE 1 MG TAB PO SCH (10:26)
[2021-12-23] MEDS: ENOXAPARIN SOD 40 MG/0.4 ML SYRINGE SC SCH (10:27)
[2021-12-23] MEDS: LISINOPRIL 5 MG TAB PO SCH (10:40)
[2021-12-23] MEDS ORDERED: FUROSEMIDE 20 MG/2 ML VIAL IV ONE (12:15)
[2021-12-23] MEDS: cefTRIAXone 1GM/50ML D5W 50 ML IV SCH (12:30)
[2021-12-23] MEDS ORDERED: FUROSEMIDE 20 MG/2 ML VIAL ONE (13:49)
[2021-12-23] MEDS: methylPREDNISolone SOD SUCC 125 MG/2 ML VL IV SCH (22:34)
[2021-12-23] MEDS: DONEPEZIL HYDROCHLORIDE 5 MG TAB PO SCH (22:35)
[2021-12-24] MEDS: TEMAZEPAM 15 MG CAP PO PRN ×2 (01:51→21:49)
[2021-12-24 05:00] VITALS: BP 152/82
[2021-12-24] MEDS: IPRATROPIUM BROM 0.5 MG/2.5ML INH SOL NEB SCH ×3 (05:29→18:44)
[2021-12-24] MEDS: GABAPENTIN 100 MG CAP PO SCH ×3 (06:21→21:49)
[2021-12-24] MEDS: LEVOTHYROXINE SODIUM 100 MCG TAB PO SCH (06:21)
[2021-12-24 08:00] VITALS: BP 140/61
[2021-12-24 09:00] VITALS: BP 140/61
[2021-12-24] MEDS ORDERED: FUROSEMIDE 20 MG/2 ML VIAL IV SCH (10:00)
[2021-12-24] MEDS: cefTRIAXone 1GM/50ML D5W 50 ML IV SCH (10:39)
[2021-12-24] MEDS: MEMANTINE HCL 5 MG TAB PO SCH ×2 (10:40→21:48)
[2021-12-24] MEDS: risperiDONE 1 MG TAB PO SCH (10:40)
[2021-12-24] MEDS: MULTIPLE VITAMIN TAB PO SCH (10:40)
[2021-12-24] MEDS: methylPREDNISolone SOD SUCC 125 MG/2 ML VL IV SCH (10:40)
[2021-12-24] MEDS: ENOXAPARIN SOD 40 MG/0.4 ML SYRINGE SC SCH (10:41)
[2021-12-24] MEDS: LISINOPRIL 5 MG TAB PO SCH (10:41)
[2021-12-24 13:00] VITALS: BP 116/68
[2021-12-24 17:00] VITALS: BP 113/63
[2021-12-24] MEDS: DONEPEZIL HYDROCHLORIDE 5 MG TAB PO SCH (21:48)
[2021-12-24 22:00] VITALS: BP 133/64
[2021-12-25 05:00] VITALS: BP 121/62
[2021-12-25] MEDS: LEVOTHYROXINE SODIUM 100 MCG TAB PO SCH (06:52)
[2021-12-25] MEDS: GABAPENTIN 100 MG CAP PO SCH ×3 (06:52→22:12)
[2021-12-25 07:08] LABS: Basophils # (auto) 0.1 10 ^3/uL (0-0.2); Basophils % (auto) 0.9 % (0.0-2.0); Eosinophils # (auto) 0 10 ^3/uL (0-0.8); Eosinophils % (auto) 0.2 % (0.0-7.0); Hemoglobin 12.6 g/dL (12.2-16.2); Lymphocytes # (auto) 2.1 10 ^3/uL (0.4-5.4); Lymphocytes % (auto) 23.3 % (10.0-50.0); Mean Corpuscular Hemoglobin 33.4 pg (28.0-32.0); Mean Corpuscular Hgb Conc. 34.1 g/dL (32.0-36.0); Mean Corpuscular Volume 97.7 fL (80.0-100.0); Monocytes # (auto) 0.9 10 ^3/uL (0-1.3); Monocytes % (auto) 9.6 % (0.0-12.0); Nucleated Red Blood Cells % 0.1 %; Red Blood Cells 3.78 10^6/uL (4.0-5.20); Red Cell Distribution Width 13.3 % (11.8-14.3)
[2021-12-25] MEDS: ALBUTEROL SULF 2.5 MG/0.5ML(0.5%) NEB SOLN NEB PRN ×3 (07:17→19:59)
[2021-12-25] MEDS: IPRATROPIUM BROM 0.5 MG/2.5ML INH SOL NEB SCH ×3 (07:17→18:55)
[2021-12-25 07:19] LABS: BUN/Creatinine Ratio 17.5; Calcium 9.4 mg/dL (8.5-10.1); Potassium 4.4 mmol/L (3.5-5.1)
[2021-12-25 09:00] VITALS: BP 106/45
[2021-12-25] MEDS: cefTRIAXone 1GM/50ML D5W 50 ML IV SCH (09:01)
[2021-12-25] MEDS: risperiDONE 1 MG TAB PO SCH (09:29)
[2021-12-25] MEDS: MULTIPLE VITAMIN TAB PO SCH (09:29)
[2021-12-25] MEDS: MEMANTINE HCL 5 MG TAB PO SCH ×2 (09:29→22:11)
[2021-12-25] MEDS: ENOXAPARIN SOD 40 MG/0.4 ML SYRINGE SC SCH (09:29)
[2021-12-25] MEDS: predniSONE 20 MG TAB PO SCH (09:30)
[2021-12-25] MEDS: LISINOPRIL 5 MG TAB PO SCH (10:00)
[2021-12-25] MEDS: AZITHROMYCIN 500MG/ 250ML 250 ML IV SCH (10:28)
[2021-12-25 12:30] VITALS: BP 107/53
[2021-12-25 17:00] VITALS: BP 125/65
[2021-12-25 18:02] VITALS: BP 125/65
[2021-12-25 22:00] VITALS: BP 129/61
[2021-12-25] MEDS: DONEPEZIL HYDROCHLORIDE 5 MG TAB PO SCH (22:11)
[2021-12-25] MEDS: TEMAZEPAM 15 MG CAP PO PRN (22:12)
[2021-12-26] MEDS: ALBUTEROL SULF 2.5 MG/0.5ML(0.5%) NEB SOLN NEB PRN ×4 (02:38→19:31)
[2021-12-26] MEDS: IPRATROPIUM BROM 0.5 MG/2.5ML INH SOL NEB SCH ×4 (02:38→17:49)
[2021-12-26 05:00] VITALS: BP 124/55
[2021-12-26] MEDS: LEVOTHYROXINE SODIUM 100 MCG TAB PO SCH (06:24)
[2021-12-26] MEDS: GABAPENTIN 100 MG CAP PO SCH ×3 (06:25→21:42)
[2021-12-26 08:37] VITALS: BP 112/51
[2021-12-26] MEDS: cefTRIAXone 1GM/50ML D5W 50 ML IV SCH (09:13)
[2021-12-26] MEDS: AZITHROMYCIN 500MG/ 250ML 250 ML IV SCH (09:45)
[2021-12-26] MEDS: ENOXAPARIN SOD 40 MG/0.4 ML SYRINGE SC SCH (09:46)
[2021-12-26] MEDS: MULTIPLE VITAMIN TAB PO SCH (09:46)
[2021-12-26] MEDS: risperiDONE 1 MG TAB PO SCH (09:46)
[2021-12-26] MEDS: MEMANTINE HCL 5 MG TAB PO SCH ×2 (09:46→21:42)
[2021-12-26] MEDS: predniSONE 20 MG TAB PO SCH (09:53)
[2021-12-26 12:53] VITALS: BP 108/53
[2021-12-26 17:00] VITALS: BP 114/55
[2021-12-26] MEDS: DONEPEZIL HYDROCHLORIDE 5 MG TAB PO SCH (21:42)
[2021-12-26] MEDS: TEMAZEPAM 15 MG CAP PO PRN (21:42)
[2021-12-26 22:00] VITALS: BP 147/60
[2021-12-27 05:00] VITALS: BP_SYST 120; BP_SYST 139; BP_DIAS 71; BP_DIAS 77
[2021-12-27] MEDS: GABAPENTIN 100 MG CAP PO SCH ×2 (06:06→13:55)
[2021-12-27] MEDS: LEVOTHYROXINE SODIUM 100 MCG TAB PO SCH (06:06)
[2021-12-27] MEDS: IPRATROPIUM BROM 0.5 MG/2.5ML INH SOL NEB SCH ×2 (07:23→11:50)
[2021-12-27 09:00] VITALS: BP 128/59
[2021-12-27] MEDS: cefTRIAXone 1GM/50ML D5W 50 ML IV SCH (09:30)
[2021-12-27] MEDS: ENOXAPARIN SOD 40 MG/0.4 ML SYRINGE SC SCH (09:31)
[2021-12-27] MEDS: MEMANTINE HCL 5 MG TAB PO SCH (09:31)
[2021-12-27] MEDS: risperiDONE 1 MG TAB PO SCH (09:31)
[2021-12-27] MEDS: MULTIPLE VITAMIN TAB PO SCH (09:31)
[2021-12-27] MEDS: predniSONE 20 MG TAB PO SCH (09:31)
[2021-12-27] MEDS: AZITHROMYCIN 500MG/ 250ML 250 ML IV SCH (10:30)
[2021-12-27] MEDS ORDERED: PRED20TA2 PO (11:55)
[2021-12-27] MEDS ORDERED: AZIT500T66 PO (11:55)
[2021-12-27 13:00] VITALS: BP 106/50
[2021-12-27 14:10] VITALS: BP 106/50
== END 2021-12-27 15:00 | disposition home or self-care (01) | DRG 871 ==
LOC: ER 18:09 → EDBD 18:09 → TELE 21:01 → TELE-WESTW 22:56 → WEST WING 12-27 00:26
PROVIDERS: ADMIT Nurse Practitioner; ATTEND Internal Medicine Nephrology
PROC: 05HB33Z Insertion of Infusion Device into Right Basilic Vein, Percutaneous Approach (ICD-10-PCS; principal; 2021-12-23)
PROC: B54MZZA Ultrasonography of Right Upper Extremity Veins, Guidance (ICD-10-PCS; 2021-12-23)
DX: A41.9 Sepsis, unspecified organism (principal); J18.9 Pneumonia, unspecified organism; J96.21 Acute and chronic respiratory failure with hypoxia; J96.22 Acute and chronic respiratory failure with hypercapnia; J44.1 Chronic obstructive pulmonary disease with (acute) exacerbation; J45.901 Unspecified asthma with (acute) exacerbation; J44.0 Chronic obstructive pulmonary disease with (acute) lower respiratory infection; N18.9 Chronic kidney disease, unspecified; E03.9 Hypothyroidism, unspecified; E87.5 Hyperkalemia; I12.9 Hypertensive chronic kidney disease with stage 1 through stage 4 chronic kidney disease, or unspecified chronic kidney disease; I25.10 Atherosclerotic heart disease of native coronary artery without angina pectoris; F32.A Depression, unspecified; K21.9 Gastro-esophageal reflux disease without esophagitis; Z20.822 Contact with and (suspected) exposure to COVID-19; M19.90 Unspecified osteoarthritis, unspecified site; R56.9 Unspecified convulsions; R79.89 Other specified abnormal findings of blood chemistry; Z81.8 Family history of other mental and behavioral disorders; Z82.49 Family history of ischemic heart disease and other diseases of the circulatory system; Z83.3 Family history of diabetes mellitus; Z87.891 Personal history of nicotine dependence; Z90.49 Acquired absence of other specified parts of digestive tract
CPT/HCPCS: 36415; 36600; 71045; 71250; 78315; 80048; 80053; 82805; 82962; 83880; 84484; 85025; 85379; 87070; 87077; 87081; 87205; 93005; 93306; 93970; 94640; 94644; 96365; 96375; 99291; G0378; J0696; J1100